=== PATIENT | female | born 1960 | race Caucasian/White ===

== ENCOUNTER 2022-10-18 10:32 | Outpatient (CLI) | payer BC | END 2022-10-18 10:33 | disposition home or self-care (01) | LOC: CSHMAMMO 10:32 | PROVIDERS: ATTEND Family Medicine | DX: Z12.31 Encounter for screening mammogram for malignant neoplasm of breast (principal) | CPT/HCPCS: 77063; 77067 ==

== ENCOUNTER 2023-01-10 11:34 | Outpatient (CLI) | payer BC, OTHER | END 2023-01-10 11:35 | disposition home or self-care (01) | LOC: CSHMAMMO 11:34 | PROVIDERS: ATTEND Family Medicine | DX: M85.89 Other specified disorders of bone density and structure, multiple sites (principal) | CPT/HCPCS: 77080 ==

== ENCOUNTER 2023-10-24 12:45 | Outpatient (CLI) | payer BC | END 2023-10-24 12:46 | disposition home or self-care (01) | LOC: CSHMAMMO 12:45 | PROVIDERS: ATTEND Family Medicine | DX: Z12.31 Encounter for screening mammogram for malignant neoplasm of breast (principal) | CPT/HCPCS: 77063; 77067 ==